=== PATIENT | male | born 1955 | race Asian ===

== ENCOUNTER 2023-04-02 11:03 | Inpatient (IN) | payer MEDICARE ==
[~2023-04-02] VITALS: Ht 170.2 cm; Wt 71.8 kg
[2023-04-02] MEDS ORDERED: ACETAMINOPHEN 500 MG TABLET PO ONE (11:30)
[2023-04-02 11:36] LABS: COVID AG,FIA SOURCE NASAL SWAB
[2023-04-02 12:10] LABS: SARS-COV2 (COVID) ANTIGEN,FIA Negative (Negative)
[2023-04-02 12:11] LABS: INFLUENZA TYPE A NEGATIVE FOR TYPE A (NEGATIVE); INFLUENZA TYPE B NEGATIVE FOR TYPE B (NEGATIVE)
[2023-04-02 12:29] LABS: BASOPHILS % (AUTO) 1.7 % (0.0-2.0); EOSINOPHILS % (AUTO) 5.6 % (1.0-6.0); HEMATOCRIT 35.1 % (41-53); HEMOGLOBIN 12.6 g/dL (13.5-17.5); LYMPHOCYTES # (AUTO) 2.1 K/uL (1.0-4.8); LYMPHOCYTES % (AUTO) 31.6 % (22.0-44.0); MEAN CORPUSCULAR HEMOGLOBIN 34.4 pg (26.0-34.0); MEAN CORPUSCULAR HGB CONC 35.8 G/dL (31.0-37.0); MEAN CORPUSCULAR VOLUME 96 fL (80-100); MONOCYTES # (AUTO) 0.6 K/uL (0.1-1.0); MONOCYTES % (AUTO) 8.4 % (2.0-9.0); NEUTROPHILS # (AUTO) 3.5 K/uL (1.8-7.7); NEUTROPHILS % (AUTO) 52.7 % (40.0-70.0); PLATELET COUNT (AUTO) 153 K/uL (150-450); RED BLOOD CELL COUNT(AUTO) 3.65 MIL/uL (4.50-5.90); RED CELL DISTRIBUTION WIDTH 14.7 % (11.5-14.5); WHITE BLOOD COUNT (AUTO) 6.6 K/uL (4.5-11.0)
[2023-04-02 12:35] LABS: ANION GAP 5 mmol/L (8-16); CALCIUM, TOTAL 8.8 mg/dL (8.8-10.5); CARBON DIOXIDE 29 mmol/L (22-29); CHLORIDE 103 mmol/L (98-107); CREATININE 1.06 mg/dL (0.60-1.30); GLOMERULAR FILTR. RATE CALC > 60 mL/min (>60); GLUCOSE,RANDOM 101 mg/dL (70-110); POTASSIUM 3.7 mmol/L (3.5-5.1); SODIUM SERUM 137 mmol/L (136-145); UREA NITROGEN, BLOOD 14 mg/dL (7-18)
[2023-04-02 12:40] LABS: PROTHROMBIN TIME 10.6 SEC (9.4-11.6)
[2023-04-02 12:43] LABS: TROPONIN I-HIGH SENSITIVITY 8 ng/L (<76)
[2023-04-02 12:44] LABS: B-TYPE NATRIURETIC PEPTIDE 67 pg/mL (0-100)
[2023-04-02] MEDS ORDERED: IOHEXOL 350 MG/ML 100 ML VIAL ONE (12:57)
[2023-04-02] MEDS ORDERED: SODIUM CHLORIDE 0.9% 100 ML ONE (12:58)
[2023-04-02 13:00] LABS: ALANINE AMINOTRANSFERASE 21 U/L (12-78); ALBUMIN 3.5 g/dL (3.4-5.0); ALKALINE PHOSPHATASE 85 U/L (46-116); ASPARTATE AMINOTRANSFERASE 39 U/L (15-37); BILIRUBIN,TOTAL 1.2 mg/dL (0.1-1.0); CREATINE KINASE, TOTAL ONLY 99 U/L (39-308); TOTAL PROTEIN, SERUM 8.2 g/dL (6.4-8.2)
[2023-04-02] MEDS ORDERED: MAGNESIUM HYDROXIDE SUSPENSION 30 ML UDCUP PO PRN (13:15)
[2023-04-02] MEDS ORDERED: ACETAMINOPHEN 325 MG TABLET PO PRN (13:15)
[2023-04-02 16:01] VITALS: BP 117/70; PULSE 57; RESP 18; TEMP 97.1
[2023-04-02 20:25] VITALS: BP 97/57; PULSE 68; RESP 20; TEMP 97.9
[2023-04-02 23:39] LABS: MTB PCR w/Rif. Resistance-SPUT NOT DETECTED (Not Detectd)
[2023-04-03 04:00] VITALS: BP 97/51; PULSE 60; RESP 16; RESP 20; TEMP 97.5
[2023-04-03] MEDS: FAMOTIDINE 20 MG TABLET PO SCH (08:00)
[2023-04-03 08:06] LABS: HIV 1-2 SCREEN 4TH GEN W/RFLX Non Reactive (Non Reactive)
[2023-04-03 08:29] LABS: MTB PCR w/Rif. Resistance-SPUT NOT DETECTED (Not Detectd)
[2023-04-03 09:52] VITALS: BP 102/65; PULSE 61; RESP 16; TEMP 97.8
[2023-04-03 17:17] VITALS: BP 105/61; PULSE 64; RESP 17; TEMP 98.3
[2023-04-03] MEDS: PredniSONE 20 MG TABLET PO SCH (18:14)
[2023-04-03 19:30] VITALS: BP 102/59; PULSE 59; RESP 16; TEMP 98.2
[2023-04-04 04:00] VITALS: BP 124/73; PULSE 63; RESP 18; TEMP 97.6
[2023-04-04] MEDS: FAMOTIDINE 20 MG TABLET PO SCH (08:02)
[2023-04-04] MEDS: PredniSONE 20 MG TABLET PO SCH (08:02)
[2023-04-04 08:10] VITALS: BP 115/62; PULSE 79; RESP 19; TEMP 97.7
[2023-04-04 20:12] VITALS: BP 124/67; PULSE 85; RESP 18; TEMP 98.3
[2023-04-05 04:18] VITALS: BP 111/69; PULSE 72; RESP 18; TEMP 97.6
[2023-04-05 07:49] VITALS: BP 114/68; PULSE 64; RESP 20; TEMP 97.8
[2023-04-05] MEDS: PredniSONE 20 MG TABLET PO SCH (09:18)
[2023-04-05] MEDS: FAMOTIDINE 20 MG TABLET PO SCH (09:18)
[2023-04-05 21:03] VITALS: BP 111/70; PULSE 68; RESP 18; TEMP 98.2
[2023-04-05 22:06] LABS: QUANTIFERON+,Mitogen Value >10.00 IU/mL; QUANTIFERON+,TB1 Antigen Value >10.00 IU/mL; QUANTIFERON+,TB2 Antigen Value >10.00 IU/mL; QUANTIFERON, TB GOLD PLUS Positive (Negative)
[2023-04-06 04:40] VITALS: BP 102/58; PULSE 74; RESP 18; TEMP 97.6
[2023-04-06 08:27] VITALS: BP 100/57; PULSE 67; RESP 18; TEMP 98.2
[2023-04-06] MEDS: PredniSONE 20 MG TABLET PO SCH (08:35)
[2023-04-06] MEDS: FAMOTIDINE 20 MG TABLET PO SCH (08:36)
[2023-04-07 08:52] LABS: GLUCOMETER DEV NAME(LOC) 6S.2; GLUCOSE,POINT OF CARE 220 MG/DL (70-110)
== END 2023-04-06 14:00 | disposition home or self-care (01) | DRG 192 ==
LOC: EMS 11:04 → EDBD 11:04 → 6N 13:51
PROVIDERS: ADMIT Internal Medicine; ATTEND Internal Medicine
DX: J47.1 Bronchiectasis with (acute) exacerbation (principal); J84.10 Pulmonary fibrosis, unspecified; Z20.822 Contact with and (suspected) exposure to COVID-19; I25.10 Atherosclerotic heart disease of native coronary artery without angina pectoris; Z95.1 Presence of aortocoronary bypass graft; Z95.2 Presence of prosthetic heart valve; Z86.11 Personal history of tuberculosis
CPT/HCPCS: 71045; 71275; 80053; 82550; 82962; 83880; 84484; 85025; 85610; 85730; 86480; 87015; 87206; 87389; 87556; 87804; 93005; 99285; J7050; Q9967; 36415-L1; 36415-TC

== ENCOUNTER 2024-08-12 12:42 | Emergency (ER) | payer OTHER ==
[~2024-08-12] VITALS: Ht 170.2 cm; Wt 76.4 kg
[2024-08-12 12:48] VITALS: TEMP 97.7
[2024-08-12] MEDS: IBUPROFEN 600 MG TABLET PO ONE (16:07)
[2024-08-12] MEDS: ACETAMINOPHEN 500 MG TABLET PO ONE (16:08)
[2024-08-12 16:35] VITALS: BP 118/64; PULSE 68; RESP 16; O2SAT 99
[2024-08-12] MEDS ORDERED: ACET-66 PO (18:45)
[2024-08-12] MEDS ORDERED: IBUP-1554 PO (18:45)
== END 2024-08-12 19:05 | disposition home or self-care (01) ==
LOC: EMS 12:48
DX: M77.52 Other enthesopathy of left foot and ankle (principal); M79.672 Pain in left foot
CPT/HCPCS: 99283